=== PATIENT | female | born 1970 | race Caucasian/White ===

== ENCOUNTER 2016-11-28 11:37 | Emergency (ER) | payer OTHER ==
[2016-11-28 13:06] VITALS: BP 138/95
== END 2016-11-28 13:06 | disposition home or self-care (01) ==
LOC: ED 11:37
DX: M54.41 Lumbago with sciatica, right side (principal); R03.0 Elevated blood-pressure reading, without diagnosis of hypertension
CPT/HCPCS: J1885

== ENCOUNTER 2018-04-29 13:53 | Emergency (ER) | payer OTHER ==
[~2018-04-29] VITALS: Ht 160 cm; Wt 75.7 kg
[2018-04-29 14:08] VITALS: BP 137/81; Ht 160 cm; Wt 75.7 kg
[2018-04-29 14:49] LABS: BASOPHIL % 0.5 % (0-2); PLATELET COUNT 287 x10^3mcL (130-400); RED CELL DISTRIBUTION WIDTH 15.6 % (11.5-14.5)
== END 2018-04-29 15:42 | disposition home or self-care (01) ==
LOC: ED 13:53
PROVIDERS: Emergency Medicine
DX: N93.8 Other specified abnormal uterine and vaginal bleeding (principal); R51 Headache; R42 Dizziness and giddiness; E78.00 Pure hypercholesterolemia, unspecified
CPT/HCPCS: 36415